=== PATIENT | male | born 2000 | race Caucasian/White ===

== ENCOUNTER 2025-02-21 08:04 | Outpatient (REF) | payer OTHER, SELFPAY ==
--- NOTE | ~2025-02-21 | MR_ITS ---
EXAMINATION: MR ELBOW WITHOUT CONTRAST, LEFT CLINICAL INFORMATION: Elbow pain, posterior medial aspect. Injury approximately 12 weeks prior, continued pain. COMPARISON: No prior imaging available. TECHNIQUE: MRI of the elbow was performed using routine sequences on a 1.5 Jennifer Siemens high-field unit. FINDINGS: There is increased signal and mild thickening of the anterior bundle, medial collateral ligament at its humeral insertion, suggestive of partial tearing. (Series 5, image 20; series 9, image 20). There is no complete tear of the medial collateral ligaments. The sublime tubercle has a normal appearance. The radial collateral ligament appears intact and normal in signal. The annular ligament appears intact and normal in signal. The common extensor tendon, and common flexor tendons appear intact and normal in signal. There is normal bony alignment. There is no joint effusion. There is no subchondral bone plate edema or cartilaginous abnormalities identified in either the radial capitellar or ulnar trochlear joints. There is no bone marrow signal abnormality identified to suggest contusion or fracture. The triceps tendon and has normal appearance and morphology. The bicipital tendon, and brachialis tendon appear intact and normal in signal. MR/MR elbow LT wo con IMPRESSION: 1. Partial tear injury of the anterior bundle, medial collateral ligament at its humeral insertion. 2. The remainder of the examination is normal. Electronically signed by: Rudi Barkley MD 02/21/2025 09:17 AM EDT
--- OUTSIDE RECORDS SUMMARY | 2025-02-21 08:07 | XMS_ITS | Clinical Summary ---
Author Organization [facility] Address [address] [place] [phone] Phone Care Team Providers Care Item Repair Manager Name Role Phone Provider, Osmany SWEENEY Primary Care Provider [phone] Allergies No known active allergies Medications fexofenadine 180 MG tablet Take 180 mg by mouth daily. Active saccharomyces boulardii 250 MG capsule Take 250 mg by mouth daily. Active ISOtretinoin (ACCUTANE PO) Take by mouth. 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 Marijuana user 11/09/2018 Weight loss, unintentional 08/18/2018 Overview (08/18/2018): 08/2018 Noted 11lb loss since 05/2018 Immunizations Immunization Administration Dates Next Due COVID-19 Pfizer, monovalent, 12+ years 1 DTaP 12/15/2007, 4,05/19/2003,03/21,01/13/2003 HPV Vaccine 9 Valent 11/26/2016,07/23/2016,05/21 Hep A, ped/adol 05/31/2021,05/29/2020 Hep B, ped/adol 08/18/2003,2002,2002 Hib (HbOC) 02/20/2004, 3,03/21/2003,01/13 IPV 12/15/2007, 4,03/21/2003,01/13 Influenza, injectable, quadr ivalent, preservative free 06/22/2020,08/05/2018,08/11/2017 Influenza, injectable, trivalent 07/23/2016,100 03/2009,07/09/2004 MMR 02/20/2004 MMRV 11/27/2006 Meningococcal B Bexsero 05/31/2021 Meningococcal Conj (Menactra) MCV4P 05/26/2019,0 06/22/2014 Pneumococcal Conjugate 11/22/2003,2002,03/21/2003,01/13 Tdap 06/22/2014 Varicella 02/20/2004 Family History Medical History Relation Name Comments Hyperlipidemia Father Breast cancer Maternal Grandmother Asthma Mother Relation Name Status Comments Father Maternal Grandmother Mother Other 1 Asthma/Wheezing : Mother Other 2 Cancer: Paterna l Grandmother Other 3 Eczema/Psoriasi s: Mother Other 4 Thyroid disease : Paternal Grandmother Social History Tobacco Use Types Packs/Day Years Used Date Smoking Tobacco: Never Smokeless Tobacco: Never Comments:never smoker Alcohol Use Standard Drinks/Week Comments No 0 (1 standard drink = 0.6 oz pur e alcohol) Sex and Gender Information Value Date Recorded Sex Assigned at Male 05/26/2019 8:55 AM EDT Legal Sex Male 8:27 PM EST Gender Identity Male 05/26/2019 8:55 AM EDT Sexual Orientation Straight 05/26/2019 8: 55 AM EDT Last Filed Vital Signs Vital Sign Reading Time Taken Comments Blood Pressure 108/72 05/29/2020 8:07 AM EDT Pulse - - Temperature 36.6 ??C (97.8 ??F) 05/26/2019 8:28 AM ED T Respiratory Rate - - Oxygen Saturation 99% 10/14/2018 8:29 AM EST Inhaled Oxygen Concentration - - Weight 85.3 kg (188 lb) 05/31/2021 1:30 PM EDT Height 172.7 cm (5' 8 ) 05/31/2021 1:30 PM EDT Body Mass Index 28.59 05/31/2021 1:30 PM EDT Plan of Treatment Health Maintenance Due Date Last Done Comments Men B Vaccine (2 of 2 - Bexs ero SCDM 2-dose series) 12/01/2021 05/31/2021 Influenza Vaccines (#1) 2024 07/17/20 22, 07/08/2021, 06/22/2020, Additional history exists COVID-19 Vaccine (3 - 2023-2 5 season) 2024 09/20/2021, 01/19/2021 DTaP,Tdap,and Td Vaccines (7 - Td or Tdap) 06/22/2024 06/22/2014, 12/15/2007, 05/22/2004, Additional history exists Hepatitis B Vaccines Completed 08/18/2003, 2002, 2002 Pneumococcal Vaccine Completed 11/22/2003, 05/19/2003, 03/21/2003, Additional history exists HIB Vaccines Completed 02/20/2004, 05/06, 03/21/2003, Additional history exists MMR Vaccines Completed 11/27/2006, 02/20/2004 Varicella Vaccines Completed 11/27/2006, 02/20/2004 IPV Vaccines Completed 12/15/2007, 05/06, 03/21/2003, Additional history exists HPV Vaccines Completed 11/26/2016, 07/06, 05/21/2016 Meningococcal Vaccine Completed 05/26/2019, 014 Hepatitis A Vaccines Completed 05/31/2021, 05/29/20 [place] [id number] Care Teams Item Repair Manager Relationship Specialty Start Date End Date Provider, MD Osmany [address] [place] [id number] PCP - General Pediatrics 08/26/22
--- OUTSIDE RECORDS SUMMARY | 2025-02-21 08:08 | XMS_ITS | Data Portability ---
Author Organization [facility], [facility] Address [address] [address] Assessment Encounter Date Assessment Date Assessment LastModified by Organization Details LastModified Time 05/28/2021 05/28/2021 Pt is a 20 yo RH D Male presenting with RIGHT shoulder pain attributed to AC joint sprain, secondary impingement and chronic glenohumeral joint hypermobility. Patient's physical impairments include pain, glenohumeral joint hypermobility, weakness of the RTC and periscapular musculature, impaired motor control of the scapulothoracic joint and shoulder complex. Pt will benefit from skilled PT to address above impairments in order to facilitate return to functional and recreational tasks, pain free and without incidents of instability. Pt recommended for skilled PT _1-2____ x per week for ____8____ weeks. Treatment to include stretching, soft tissue and joint mobilization techniques, strength training for the RTC and periscapular muscles, as well as dynamic stability tasks, and modalities prn for pain control. Next Visit: progress into dynamic stability exercises [email or web address] Not available 05/28/2021 12:45:37 06/01/2021 06/01/2021 Patient tolerate d new exercises completed today, which focused on dyanmic stability and control. He will progress with his exercises as tolerated Pt is a 20 yo RHD Male presenting with RIGHT shoulder pain attributed to AC joint sprain, secondary impingement and chronic glenohumeral joint hypermobility. Patient's physical impairments include pain, glenohumeral joint hypermobility, weakness of the RTC and periscapular musculature, impaired motor control of the scapulothoracic joint and shoulder complex. Pt will benefit from skilled PT to address above impairments in order to facilitate return to functional and recreational tasks, pain free and without incidents of instability. Pt recommended for skilled PT _1-2____ x per week for ____8____ weeks. Treatment to include stretching, soft tissue and joint mobilization techniques, strength training for the RTC and periscapular muscles, as well as dynamic stability tasks, and modalities prn for pain control. Next Visit: progress into dynamic stability exercises [email or web address] Not available 06/01/2021 14:46:52 06/06/2021 06/06/2021 Patient progress ed through all exercises today, which focused on strength and stability. No pain or feelings of instability. He will progress with his exercises as tolerated Pt is a 20 yo RHD Male presenting with RIGHT shoulder pain attributed to AC joint sprain, secondary impingement and chronic glenohumeral joint hypermobility. Patient's physical impairments include pain, glenohumeral joint hypermobility, weakness of the RTC and periscapular musculature, impaired motor control of the scapulothoracic joint and shoulder complex. Pt will benefit from skilled PT to address above impairments in order to facilitate return to functional and recreational tasks, pain free and without incidents of instability. Pt recommended for skilled PT _1-2____ x per week for ____8____ weeks. Treatment to include stretching, soft tissue and joint mobilization techniques, strength training for the RTC and periscapular muscles, as well as dynamic stability tasks, and modalities prn for pain control. Next Visit: progress into dynamic stability exercises Not available 06/06/2021 08:26:00 06/20/2021 06/20/2021 Patient continue d to progress through all exercises today, which focused on strength and stability. No pain or feelings of instability. He will undergo re-evaluation during next PT session. Pt is a 20 yo RHD Male presenting with RIGHT shoulder pain attributed to AC joint sprain, secondary impingement and chronic glenohumeral joint hypermobility. Patient's physical impairments include pain, glenohumeral joint hypermobility, weakness of the RTC and periscapular musculature, impaired motor control of the scapulothoracic joint and shoulder complex. Pt will benefit from skilled PT to address above impairments in order to facilitate return to functional and recreational tasks, pain free and without incidents of instability. Pt recommended for skilled PT _1-2____ x per week for ____8____ weeks. Treatment to include stretching, soft tissue and joint mobilization techniques, strength training for the RTC and periscapular muscles, as well as dynamic stability tasks, and modalities prn for pain control. Next Visit: progress into dynamic stability exercises [email or web address] Not available 06/20/2021 16:41:44 03/12/2024 03/12/2024 Mike is a 22-year-old male presents today for left knee pain secondary to an injury that occurred while playing lacrosse at [facility] in January when he fell. He had a twisting injury had immediate pain swelling decreased range of motion. Was treated by the athletic trainers who likely thought it was a bone bruise and continue to treat him with exercise activities and modalities. He continues to play however he was in pain after playing and practicing. Continues to have pain with flexion extension pain going up and down stairs. He is tried extensive nonsteroidal anti-inflammatorie s home exercise program and physical therapy since January with no benefit. States it is hard for him to do normal daily activities without having significant pain. Current exam reveals range of motion 0-125 degrees flexion mild pain with extension. Overall muscle strength is 4 5 positive medial joint line tenderness positive Susan's no knee instability. X-rays are negative Plan this current time due to his persistent symptoms pain has been having difficulty on a daily basis I would recommend that he undergo a left knee MRI looking for medial meniscal tear versus chondral injury. [email or web address] Not available 03/12/2024 13:11:42 Plan of Treatment Reminders Order Date Submit Date Provider Last Modified By Organization Details Last Modified Time Details Appointments None record ed. Lab None record ed. Referral None record ed. Procedures None record ed. Surgeries None record ed. Imaging None record ed. Medication Orders None record ed. Patient Targets Encounter Date Encounter Id Patient Goals Patient Target Last Modified By Organization Details Last Modified Time STG (4-6 weeks):1. improved Quick DASH to <152. improved RTC strength of supraspinatus and infraspinatus to 4+/53. improved periscapular muscles to 4/5STG (4-6 weeks):1. improved Quick DASH to <1502. improved RTC strength of supraspinatus and infraspinatus to 5/53. improved periscapular muscles to 4+/54.y-balance test composite score >90% [email or web address] Not available 05/28/2021 12:49:03 STG (4-6 weeks):1. improved Quick DASH to <152. improved RTC strength of supraspinatus and infraspinatus to 4+/53. improved periscapular muscles to 4/5STG (4-6 weeks):1. improved Quick DASH to <1502. improved RTC strength of supraspinatus and infraspinatus to 5/53. improved periscapular muscles to 4+/54.y-balance test composite score >90% [email or web address] Not available 06/01/2021 13:54:51 STG (4-6 weeks):1. improved Quick DASH to <152. improved RTC strength of supraspinatus and infraspinatus to 4+/53. improved periscapular muscles to 4/5STG (4-6 weeks):1. improved Quick DASH to <1502. improved RTC strength of supraspinatus and infraspinatus to 5/53. improved periscapular muscles to 4+/54.y-balance test composite score >90% [email or web address] Not available 06/06/2021 07:03:03 STG (4-6 weeks):1. improved Quick DASH to <152. improved RTC strength of supraspinatus and infraspinatus to 4+/53. improved periscapular muscles to 4/5STG (4-6 weeks):1. improved Quick DASH to <1502. improved RTC strength of supraspinatus and infraspinatus to 5/53. improved periscapular muscles to 4+/54.y-balance test composite score >90% [email or web address] Not available 06/20/2021 15:58:05 Patient InstructionsNo instructions recorded. Reason for Referral None Reported. Results Created Date Observation Date Name Description Value Unit Range Abnormal Flag Note LastModifiedBy Organization Detail LastModifiedTime 04/30/20 21 XR, shoul juliana, 2 or more view No observ ation record ed. In-House Order For [place] Provider For Internal Use Only, [id number] 04/30/2021 10:57:28 05/09/20 21 05/08/2021 MRI, shoul juliana, w/o contr ast No observ ation record ed. [email or web address] In-House Order For [place] Provider For Internal Use Only, [id number] 05/09/2021 12:07:46 05/11/20 21 05/11/2021 XR, shoul juliana, 2 or more view [facility] [address] [place] [address] Patien t Name: Winnie Willetta daniel Record #: [id number] Addres s: [address] Accoun t#: [id number] City/S white/Z ip: [place] [address]: Collins Alamo MD Phone: Insura nce: [place] [employer] /[facility] /Ag e/Sex: 10/M Self Pay Admit/ Reg Date: Orderi ng Dr: Collins Alamo MD Locati on: [facility] PCP: Date of Servic e: Order (s): XR should er RT min 2V CPT Code: 61500 Report Number : [id number] Reason for Exam: RIGHT SHOULD ER PAIN INDICA TION: Right should er pain TECHNI QUE: 3 views of the right should er. COMPAR BRADLEY: None FINDIN GS: No fractu re or disloc ation is identi fied. Minera lizati on is normal . Glenoh umeral joint and AC joint appear unrema rkable . Soft tissue s are unrema rkable . The visual ized lung is clear. IMPRES GEENA: Unrema rkable right should er. Dictat ed By: Aicha costello MD 2037 Signed By: Melvin Nowak i, MD 2037 TD/TT: 2037 Tech: [id number] cc: PRATEEK* Collins Alamo MD [email or web address] [facility] ? Rad [address], [place], [address] 05/23/2021 11:56:09 Result Notes None recorded. Procedures Surgical History Date Name Laterality Status Provider Name and Address Organization Details Recorded Time 06/20/20 48927 Therapeutic Exercise completed Hua Reynoso, PT [address] [place], [place], , [facility] 06/20/2021 16:41:39 06/20/20 57389 Neuromuscular reeducation completed Hua Reynoso, PT [address] [facility], [place], [place], , [facility] 06/20/2021 16:26:39 06/06/20 83787 Therapeutic Exercise completed Hua Reynoso, PT [address] [place], [place], , [facility] 06/06/2021 08:25:17 06/06/20 77760 Neuromuscular reeducation completed Hua Reynoso, PT [address] [facility], [place], [place], , [facility] 06/06/2021 08:25:14 06/01/20 34378 Therapeutic Exercise completed Hua Reynoso, PT [address] [place], [place], , [facility] 06/01/2021 14:47:33 06/01/20 98736 Neuromuscular reeducation completed Hua Reynoso, PT [address] [place], [place], , [facility] 06/01/2021 14:43:48 05/28/20 64885 Therapeutic Exercise completed Hua Reynoso, PT [address] [place], [place], , [facility] 05/28/2021 12:39:36 05/28/20 06545/ 09654/ 27694 PT Evaluation completed Hua Reynoso, PT [address] [place], [place], , [facility] 05/28/2021 12:38:37 Imaging Results Imaging Date Name Status LastModified by Organiz ation Details LastModified Time 04/30/2021 XR, shoulder, 2 or more view completed [email or web address] In-House Order For [place]as[place] Provider For Internal Use Only, [id number] 04/30/2021 10:57:28 05/08/2021 MRI, shoulder, w/o contrast completed [email or web address] In-House Order For [place] Provider For Internal Use Only, [id number] 05/09/2021 12:07:46 05/11/2021 XR, shoulder, 2 or more view completed [email or web address] [facility] ? Rad [address], [place], [address] 05/23/2021 11:56:09 Procedure Notes None recorded. Medical Equipment None Reported. Allergies No known drug allergies Medications Name Sig Start Date Stop Date Status Note LastModified by Organization Details LastModified Time minocycline 100 mg capsule TAKE 1 CAPSULE BY MOUTH EVERY DAY active Not Available Not Available No t Available prednisone 20 mg tablet active Not Available Not Available Not Available doxycycline monohydrate 100 mg tablet TAKE 1 TABLET BY MOUTH TWO TIMES DAILY FOR 7 DAYS active Not Available Not Available N ot Available clindamycin 1 % topical gel APPLY TOPICALLY TO AFFECTED AREA(S) EVERY DAY active Not Available Not Available No t Available benzonatate 100 mg capsule active Not Available Not Available Not Available triamcinolon e acetonide 0.1 % topical ointment APPLY A SMALL AMOUNT TO AFFECTED AREAS TWO TIMES DAILY active Not Available Not Available Not Available cefuroxime axetil 500 mg tablet TAKE 1 TABLET BY MOUTH EVERY MORNING AND TAKE 1 TABLET BY MOUTH EVERY EVENING FOR 10 DAYS active Not Available Not Available No t Available methylpredni solone 4 mg tablets in a dose pack TAKE BY MOUTH DIRECTED BY PACKAGE INSTRUCTION S. TAKE EACH DAYS DOSE ALL AT ONCE EACH MORNING active Not Available Not Available No t Available doxycycline hyclate 100 mg tablet active Not Available Not Available No t Available amoxicillin 875 mg-potassium clavulanate 125 mg tablet TAKE 1 TABLET BY MOUTH TWO TIMES DAILY FOR 7 DAYS active Not Available Not Available N ot Available sodium fluoride 1.1 % dental paste BRUSH THOROUGHLY ONCE DAILY FOR TWO MINUTES, PREFERABLY AT BEDTIME, EXPECTORTAT E THE EXCESS. DO NOT RINSE OR DRINK FOR 30 MINUTES AFTER USE active Not Available Not Available No t Available Myorisan 40 mg capsule TAKE 1 CAPSULE BY MOUTH TWO TIMES DAILY active Not Available Not Available Not Available Vitals None Recorded Social History None recorded. Functional Status None recorded. Mental Status None recorded. Family History Nothing Reported. Medical History No medical history recorded. Past Encounters Encounter ID Performer Location Encounter Start Date Encounter Closed Date Diagnosis/Indication Diagnosis SNOMED-CT Code Diagnosis ICD10 Code Diagnosis Note [id number] ANKIT MCCORMICK MD [address] [address] 08/14/2020 14:36:38 08/14/2020 15:12:22 Fracture of neck of metacarpal bone 69268508 S62.337A [id number] ANKIT MCCORMICK MD [address] [address] 09/04/2020 14:56:30 09/04/2020 17:24:12 Fracture of neck of metacarpal bone 05471463 S62.337A [id number] ANKIT MCCORMICK MD [address] [address] 09/18/2020 11:40:09 09/18/2020 12:27:56 Fracture of neck of metacarpal bone 07436100 S62.337A [id number] LESLY DIOP [address] [address] 05/04/2021 08:17:44 05/05/2021 11:35:15 Pain of left shoulder joint 1290476275 3833471 M25.512 [id number] LESLY DIOP [address] [address] 05/14/2021 08:05:05 05/14/2021 14:33:11 Pain of right shoulder joint 9690822010 2576672 M25.511 [id number] Hua Reynoso, PT [address] [address] 05/28/2021 08:20:45 05/29/2021 08:06:18 Muscle weakness 32510003 M62.81 Pain of ri ght shoulder joint 5759716186 4306251 M25.511 [id number] Hua Reynoso, PT [facility] [address] [place] [address] 06/01/2021 13:52:51 06/04/2021 08:00:37 Muscle weakness 07402742 M62.81 Pain of ri ght shoulder joint 5037424569 7930788 M25.511 [id number] Hua Reynoso, PT [facility] [address] [place] [address] 06/06/2021 07:39:08 06/06/2021 09:50:51 Muscle weakness 83624894 M62.81 Pain of ri ght shoulder joint 7646196940 [id number] M25.511 [id number] Hua Edgardo, PT [facility] [address] [place] [address] 06/20/2021 15:57:04 06/20/2021 19:49:21 Muscle weakness 98271998 M62.81 Pain of ri ght shoulder joint 9546304592 9726634 M25.511 [id number] LESLY DIOP [facility] [address] [place] [address] 03/12/2024 10:55:14 03/12/2024 13:42:42 Pain of left knee joint 8532287104 15201 M25.562 Health Concerns Section Related Observation LastModified by Organization Detai ls LastModified Time None Recorded Concern Status LastModified by Organization Details LastModified Time None Recorded Advance Directives Directive None Recorded Payers Insurance Date Sequence Insurance Name Policy Number Policy Hennessy Covered Member ID Hennessy Member ID Guarantor Name 03/09/2024 1 [facility] [id number] Tomy Willett [id number] Tomy Willett Notes Date Note Type Note Provider Name and Address Organization Details Recorded Time 05/28/2021 text/html Patient is an 20 y o male who presents with RIGHT shoulder pain during functional activities. patient describes initial onset of pain following contact injury while playing [employer] in early May (2020). He describes getting checked and feeling his shoulder popped out and then back in . Pain was 8/10 on VRS and patient also describes some numbness into the arm. Discomfort in the shoulder decreased as went on. Patient had radiographs and MRI completed on the RIGHT shoulder, highlighting increased inflammation at the AC joint. Mike claims that the reports also proved negative for fracture or signficiant soft tissue injury. Patient received cortisone injection about a week ago, before his last [employer] game of the season. Patient was checked in the RIGHT shoulder but pain was no more than 6/10, and dissipated within 5-10 min. Mike is now in his off-season for [employer], and he hopes to improve his shoulder's stability. PMH reveals bilateral shoulder subluxations, without medical assistance. Hua Reynoso, PT [address] [place], [address], [facility] 05/28/2021 12:49:52 06/01/2021 text/html Patient is an 20 y o male who presents with RIGHT shoulder pain during functional activities. patient describes initial onset of pain following contact injury while playing [employer] in early May (2020). He describes getting checked and feeling his shoulder popped out and then back in . Pain was 8/10 on VRS and patient also describes some numbness into the arm. Discomfort in the shoulder decreased as went on. Patient had radiographs and MRI completed on the RIGHT shoulder, highlighting increased inflammation at the AC joint. Mike claims that the reports also proved negative for fracture or signficiant soft tissue injury. Patient received cortisone injection about a week ago, before his last [employer] game of the season. Patient was checked in the RIGHT shoulder but pain was no more than 6/10, and dissipated within 5-10 min. Mike is now in his off-season for [employer], and he hopes to improve his shoulder's stability. PMH reveals bilateral shoulder subluxations, without medical assistance. Huakelsie Reynoso, PT [address] [place], [address], [facility] 06/01/2021 14:47:52 06/06/2021 text/html Patient is an 20 y o male who presents with RIGHT shoulder pain during functional activities. patient describes initial onset of pain following contact injury while playing [employer] in early May (2020). He describes getting checked and feeling his shoulder popped out and then back in . Pain was 8/10 on VRS and patient also describes some numbness into the arm. Discomfort in the shoulder decreased as went on. Patient had radiographs and MRI completed on the RIGHT shoulder, highlighting increased inflammation at the AC joint. Mike claims that the reports also proved negative for fracture or signficiant soft tissue injury. Patient received cortisone injection about a week ago, before his last [employer] game of the season. Patient was checked in the RIGHT shoulder but pain was no more than 6/10, and dissipated within 5-10 min. Mike is now in his off-season for [employer], and he hopes to improve his shoulder's stability. PMH reveals bilateral shoulder subluxations, without medical assistance. Current Condition: Patient comes in today stating that he has been completing his HEP as instructed. He states that his shoulder has been feeling generally pretty good. Hua Reynoso, PT [address] [place], [address], [facility] 06/06/2021 08:26:24 06/20/2021 text/html Patient is an 20 y o male who presents with RIGHT shoulder pain during functional activities. patient describes initial onset of pain following contact injury while playing [employer] in early May (2020). He describes getting checked and feeling his shoulder popped out and then back in . Pain was 8/10 on VRS and patient also describes some numbness into the arm. Discomfort in the shoulder decreased as went on. Patient had radiographs and MRI completed on the RIGHT shoulder, highlighting increased inflammation at the AC joint. Mike claims that the reports also proved negative for fracture or signficiant soft tissue injury. Patient received cortisone injection about a week ago, before his last [employer] game of the season. Patient was checked in the RIGHT shoulder but pain was no more than 6/10, and dissipated within 5-10 min. Mike is now in his off-season for [employer], and he hopes to improve his shoulder's stability. PMH reveals bilateral shoulder subluxations, without medical assistance. Current Condition: Patient denies much pain or discomfort in the RIGHT shoulder since his last PT session. Hua Reynoso, PT [address] [place], [address], [facility] 06/20/2021 16:44:58
--- OUTSIDE RECORDS SUMMARY | 2025-02-21 08:08 | XMS_ITS | Encounter Summary ---
Author Organization [facility] Address [address] [place] [address] Phone Care Team Providers Care Mine Motor Engineer Name Role Phone Ford Kingston MD Primary Care Provider [email or web address], Unknown Primary Care Provider Sruthi martin Encounter Details Date Type Department Care Team (Late st Contact Info) Description 09/24/2022 Procedure Pass [facility] Department [address] [place] [address] Social History Tobacco Use Types Packs/Day Years Used Date Smoking Tobacco: Never Assessed Sex and Gender Information Value Date Recorded Sex Assigned at Male 06/02/2023 11:14 AM EDT Legal Sex Male 9:36 AM EDT Gender Identity Male 06/02/2023 11:14 AM EDT Sexual Orientation Straight 06/02/2023 11 :14 AM EDT documented as of this encounter Last Filed Vital Signs Vital Sign Reading Time Taken Comments Blood Pressure - - Pulse - - Temperature - - Respiratory Rate - - Oxygen Saturation - - Inhaled Oxygen Concentration - - Weight 79.4 kg (175 lb) 09/24/2022 2:38 PM EST Height 177.8 cm (5' 10 ) 09/24/2022 2:38 PM EST Body Mass Index 25.11 09/24/2022 2:38 PM EST documented in this encounter Plan of Treatment Not on file documented as of this encounter Visit Diagnoses Not on filedocumented in this encounter Care Teams Mine Motor Engineer Relationship Specialty Start Date End Date Ford Kingston MD PCP - General Adolescent Medicine 05/29/20 05/25/23 Unknown, Unknown, PCP - General 05/26/23 documented as of this encounter Additional Source Comments The information contained in this document represents components of the legal health record. It is not the complete legal health record.[facility]
--- OUTSIDE RECORDS SUMMARY | 2025-02-21 08:08 | XMS_ITS | Clinical Summary ---
Author Organization [facility] Address [address] [facility] [address] [place] [address] Phone Care Team Providers Care Stacker Operator Name Role Phone Unknown, Unknown Primary Care Provider Sruthi labacacia Allergies No known active allergies Medications fexofenadine (LIZANDRO) 180 MG tablet Take 180 mg by mouth. Active Saccharomyces boulardii (FLORASTOR) 250 mg capsule Take 250 mg by mouth. Active tretinoin (RETIN-A) 0.025 % cream Apply 0.025 application topically. 8 Active phenylephrine (SUDAFED PE) 10 MG Tab Take 10 mg by mouth every 4 (four) hours as needed. Active bacillus coagulans-inuli n 1 billion-250 cell-mg Cap Take 250 mg by mouth daily. Active methylPREDNISol one (MEDROL DOSEPACK) 4 mg tablet follow package directions or the patient may take each days dose all at once each morning 21 tablet 3 Active Active Problems No known active problems Social History Tobacco Use Types Packs/Day Years Used Date Smoking Tobacco: Never Smokeless Tobacco: Never Tobacco Cessation:Counseling Given: Not Answered Education Answer Date Recorded Are you interested in more education? Not on belem e 01/31/2023 Are you concerned about learning? Not on file 01/31/2023 No 01/31/2023 No 01/31/2023 Digital Access Answer Date Recorded No 03/01/2023 No 03/01/2023 Reliable internet access at home? Not on file 03/01/2023 Device with a working camera? Not on file Sex and Gender Information Value Date Recorded Sex Assigned at Male 06/02/2023 11:14 AM EDT Legal Sex Male 9:36 AM EDT Gender Identity Male 06/02/2023 11:14 AM EDT Sexual Orientation Straight 06/02/2023 11 :14 AM EDT Last Filed Vital Signs Vital Sign Reading Time Taken Comments Blood Pressure - - Pulse - - Temperature 36.7 ??C (98 ??F) 05/30/2020 1:17 PM EDT Respiratory Rate - - Oxygen Saturation - - Inhaled Oxygen Concentration - - Weight 79.4 kg (175 lb) 09/24/2022 2:38 PM EST Height 177.8 cm (5' 10 ) 09/24/2022 2:38 PM EST Body Mass Index 25.11 09/24/2022 2:38 PM EST Plan of Treatment Health Maintenance Due Date Last Done Comments DEPRESSION SCREENING 2014 SMOKING Hx and SMOKELESS TOB ACCO SCREENING 2015 HPV VACCINES (1 - Male 3-dos e series) 2017 HEPATITIS C SCREENING 2020 HIV ONE-TIME SCREENING (18-6 5 YEARS) 2020 INFLUENZA VACCINE (#1) 2024 COVID-19 VACCINE ( - 2023-2 5 season) 2024 Adult Td,Tdap Booster 06/22/2024 06/22/2014 HEPATITIS A VACCINES Aged Out No long er eligible based on patient's age to complete this topic HIB VACCINES Aged Out No longer eligi ble based on patient's age to complete this topic MENINGOCOCCAL VACCINES (ACWY) Aged Out No longer eligible based on patient's age to complete this topic PNEUMOCOCCAL VACCINES (0-49 years) Aged Out No longer eligible based on patient's age to complete this topic Medical Devices Not on [place] [address] [place] [address] PPO [facility] PPO [facility] PPO [facility] PPO [facility] PPO [facility] PPO [facility] PPO Care Teams Stacker Operator Relationship Specialty Start Date End Date Unknown, Unknown, PCP - General 05/26/23 Additional Source Comments The information contained in this document represents components of the legal health record. It is not the complete legal health record.[facility]
--- OUTSIDE RECORDS SUMMARY | 2025-02-21 08:08 | XMS_ITS | Clinical Summary ---
Author Organization [facility] [employer] Address [address] [facility] [place] [address] Care Team Providers Care Jet Operator Name Role Phone No, Pcp SALES AND TRAINING SPECIALIST Primary Care Provider Unavailabl e Social History Tobacco Use Types Packs/Day Years Used Date Smoking Tobacco: Never Assessed Sex and Gender Information Value Date Recorded Sex Assigned at Not on file Legal Sex Male 5:05 PM EDT Gender Identity Not on file Sexual Orientation Not on file Plan of Treatment Health Maintenance Due Date Last Done Comments Depression: Screening Annual ly using PHQ-2/9 in Adults 18 yrs or above (or HM Modifier)([facility]) 2002 Hepatitis C Virus Infection in Adolescents and Adults: Screening (or Modifier) ([facility]) 2020 SDOH Screening Reminder: Treva downey for all adults ([facility]) 2020 Tobacco Smoking Cessation: i n Adults excluding Women: Behavioral and Pharmacotherapy Interventions ([facility]) 2020 DTaP/Tdap/Td Vaccines ([facility]) (1 - Tdap) 2021 Lipid Screening: Once for Me n aged 20 to 35 yrs ([facility]) 2022 COVID-19 Vaccine Screening: Initial Series and Booster Status ([facility]) ( - 2023- season) 2024 Flu Vaccination: Yearly for ages 18mos through 64 years (or Modifier)([facility]) 05/06/2025 Zoster/Shingles Vaccine Seri es Screening: Adults aged 18+ yrs (or HM Modifiers)([facility]) (1 of 2) 2052 Pneumococcal Vaccination Scr eening: Pts 0-19 & 19-49 yrs of age ([facility]) Aged Out No longer eligible based on patient's age to complete this topic Medical Devices Not on file Insurance [facility] Care Teams Jet Operator Relationship Specialty Start Date End Date No, Pcp, SALES AND TRAINING SPECIALIST N/A Do not use PCP - General Family Medicine 08/04/20
--- OUTSIDE RECORDS SUMMARY | 2025-02-21 08:08 | XMS_ITS | Clinical Summary ---
Author Organization [facility] Address [address] [place] [address] [place] [address] Care Team Providers Care Strategic Alliances Manager Name Role Phone Dane Jasso Do Primary Care Provider [phone] Allergies No known active allergies Medications fluticasone propionate 50 mcg/actuation [place], Suspension Apply 1 spray in each nostril daily Active Active Problems Problem Noted Date Diagnosed Date Attention deficit hyperactivity disorder, inatte ntive type 12/16/2018 Resolved Problems Problem Noted Date Diagnosed Date Resolved Date Failed hearing screening 05/29/2020 Marijuana user 11/09/2018 05/26/2024 Weight loss, unintentional 08/18/2018 0 05/26/2024 Overview (05/24/2024): 08/2018 Noted 11lb loss since 05/2018 Encounters Date Type Department Care Team Description 01/14/2025 Telephone [facility] [address] [place] [phone] Medicine, Internal RESCHEDULE APPOINTMENT from Last 3 Months Immunizations Name Administration Dates Next Due COVID-19 (PFIZER) Vaccine, 30mcg/0.3mL, 12YRS+, Diluent Reconstituted, IM 09/20/2021,01/28/2021 DTaP Vaccine 12/15/2007, 4,05/19/2003,03/21,01/13/2003 HFlu B Conj (HBOC) 02/20/2004, 3,03/21/2003,01/13 HPV9 Vaccine (Gardasil9) 11/26/2016,07/23/2016,0 05/21/2016 Hep A Vaccine Pedi/Adol-2 Dose Sched 05/31/2021, 05/29/2020 Hepatitis B Vaccine Pedi/Ado lescent 3 Dose Schedule 08/18/2003,2002,2002 Influenza Vaccine (Unspecifi ed Formulation) 07/11/2009,07/09/2004 Influenza Vaccine, 6MOS+, Ce ll Cult, Single Dose Syringe, 0.5 mL (FLUCELVAX) 07/08/2021 Influenza Vaccine, 6MOS+, Si ngle Dose, 0.5 mL (Flulaval/Fluzone) 07/17/2022,08/05/2018,08/11/2017 Influenza Vaccine, Cell Cult , Subunit, Antibiotic Free 0.5 mL, >/=4 YRS 06/22/2020 Influenza Vaccine, Split Vir us (Unspecified Formulation) 07/23/2016 MMR Vaccine 02/20/2004 MMR-Varicella Vaccine 11/27/2006 Meningococcal ACWY (Menactra ) Conjugate Vaccine 05/26/2019,06/22/2014 Meningococcal Group B (Bexse ro) Conjugate Vaccine - 2 Dose 05/31/2021 Pneumococ/Pedi-Conjugate (PCV7) 11/22/19 04,05/19/2003,03/21/2003,01/13 Polio Vaccine (Inactivated) 12/15/2007,0 05/22/2004,03/21/2003,01/13 TdaP 05/26/2024,06/22/2014 Varicella Vaccine 02/20/2004 Social History Tobacco Use Types Packs/Day Years Used Date Smoking Tobacco: Never Smokeless Tobacco: Never Tobacco Cessation:Counseling Given: Not Answered Hunger Vital Sign Answer Date Recorded Within the past 12 months, y ou worried that your food would run out before you got the money to buy more. Never true 05/26/20 24 Within the past 12 months, t he food you bought just didn't last and you didn't have money to get more. Never true 05/26/2024 PRAPARE - Transportation Answer Date Re corded In the past 12 months, has l ack of transportation kept you from medical appointments or from getting medications? No 05/07 In the past 12 months, has l ack of transportation kept you from meetings, work, or from getting things needed for daily living? No 05/26/2024 Depression Answer Date Recorded Last PHQ-2 0 05/26/2024 Last PHQ-9 Not on file 05/26/2024 Suicidal Ideation/Self Harm Risk Not on file 05/26/2024 Housing Stability Answer Date Recorded What is your housing situation today? Has ghazal g 05/26/2024 Are you worried about losing your housing? No 05/26/[address] you li ve. Do you have problem with any of the following? (Choose all that apply) None of the Above Request Assistance Answer Date Recorded Would you like to discuss an y of the needs you identified in this survey with a member of your care team? No 2023 Urgent Assistance Needed Not on file 024 Social Isolation Answer Date Recorded How often do you feel lonely or isolated from th ose around you? Never 05/26/2024 Family Needs Answer Date Recorded In the past year, have you o r any family members that you live with been unable to get resources (utilities such as power, water, or phone service; clothing; childcare; medicine or other healthcare; employment; etc) when they were really needed? No needs 05/26/2024 Other Needs Not on file 05/26/2024 Safety Answer Date Recorded Do you feel physically and e motionally safe where you currently live? Yes 05/26/2024 Self-Management Confidence Answer Date Recorded How confident are you that y ou can control and manage most of your health problems? Please provide numerical response between 0 -10. 0 = Not at all confident, 10= Completely confident. 10 05/26/2024 Sex and Gender Information Value Date Recorded Sex Assigned at Male 05/26/2024 1:09 PM EDT Legal Sex Male 10:09 AM EDT Gender Identity Male 05/26/2024 1:09 PM EDT Sexual Orientation Straight 05/26/2024 1: 09 PM EDT Obstetrics History Last Filed Vital Signs Vital Sign Reading Time Taken Comments Blood Pressure 118/70 05/26/2024 1:40 PM EDT Pulse 80 05/26/2024 1:26 PM EDT Temperature 36.4 ??C (97.6 ??F) 05/26/2024 1:26 PM ED T Respiratory Rate - - Oxygen Saturation 98% 05/26/2024 1:26 PM EDT Inhaled Oxygen Concentration - - Weight 87.3 kg (192 lb 6.4 oz) 05/26/2024 1:26 P M EDT Height 175.3 cm (5' 9 ) 05/26/2024 1:26 PM EDT Body Mass Index 28.41 05/26/2024 1:26 PM EDT Plan of Treatment Health Maintenance Due Date Last Done Comments HEP B INITIAL SCREENING 2020 HIV SCREENING 2020 MENINGOCOCCAL VACCINE (B) (2 of 2 - Bexsero SCDM 2-dose series) 12/01/2021 05/31/2021 COVID-19 Vaccine ( season) 2024 09/20/2021, 01/28/2021 PERIODIC HEALTH REVIEW 05/26/2027 05/26/2024 HEP C SCREENING 05/19/2029 05/19/2024 LIPID SCREENING 05/19/2029 05/19/2024 DTAP/TDAP/TD VACCINE (8 - Td or Tdap) 05/26/2034 05/26/2024, 06/22/2014, 12/15/2007, Additional history exists HEPATITIS B VACCINE Completed 08/18/2003, 2002, 2002 PNEUMOCOCCAL VACCINE(S) Aged Out 11/22/19 04, 05/19/2003, 03/21/2003, Additional history exists No longer eligible based on patient's age to complete this topic HAEMOPHILUS INFLUENZA VACCINE Completed 02/20/2004, 05/19/2003, 03/21/2003, Additional history exists POLIO VACCINE Completed 12/15/2007, 05/06, 03/21/2003, Additional history exists HPV VACCINE Completed 11/26/2016, 07/06, 05/21/2016 MENINGOCOCCAL VACCINE (ACWY) Completed 05/26/2019, 06/22/2014 HEPATITIS A VACCINE Completed 05/31/2021, 0 FLU SEASONAL Completed 07/12/2024, 07/06, 07/08/2021, Additional history exists RSV Vaccine //toddler Aged Out No longer eligible based on patient's age to complete this topic Procedures Procedure Name Priority Date/Time Associated Diagnosis Comments HEPATITIS C ANTIBODY W/REFLEX TO PCR Routine 05/19/2024 10:09 AM EDT Need for hepatitis C screening test LIPID PROFILE Routine 05/19/2024 10:09 AM EDT Encounter for screening for lipid disorder from Last 3 Months or Most Recently Relevant to Health Maintenance Results * LIPID PROFILE (05/19/2024 10:09 AM EDT) Pathologist [facility] CHOLESTEROL 160 <=199 mg/dL 05/19/2024 3:41 PM EDT [facility] DEPARTMENT OF PATHOLOGY AND LAB MEDICINE HDL 67 >=41 mg/dL 05/19/2024 3:41 PM EDT [facility] DEPARTMENT OF PATHOLOGY AND LAB MEDICINE CHOL/HDL RATIO 2.4 <=4.9 05/19/2024 3:41 PM EDT [facility] DEPARTMENT OF PATHOLOGY AND LAB MEDICINE LDL 83.4 <=130 mg/dL 05/19/2024 3:41 PM EDT [facility] DEPARTMENT OF PATHOLOGY AND LAB MEDICINE TRIGLYCERIDES 48 <=149 mg/dL 05/19/2024 3:41 PM EDT [facility] DEPARTMENT OF PATHOLOGY AND LAB MEDICINE FASTING STATUS Random 05/19/2024 3:41 PM EDT [facility] DEPARTMENT OF PATHOLOGY AND LAB MEDICINE Blood (Blood, Venous) Venipuncture / Unknown 05/19/2024 10:09 AM EDT 05/19/2024 10:19 AM EDT Dane Finley GENERAL LAB Final Result [facility] DEPARTMENT OF PATHOLOGY AND LAB MEDICINE [address] [place] [phone] * HEPATITIS C ANTIBODY W/REFLEX TO PCR (05/19/2024 10:09 AM EDT) Pathologist [facility] HEPATITIS C ANTIBODY 0.02 <0.80 Index Value (IV) 05/19/2024 4:01 PM EDT [facility] DEPARTMENT OF PATHOLOGY AND LAB MEDICINE Comment: NEGATIVE 0.00 - 0.79 Index Value (IV) Negative Test performed by the Siemens [employer] instrument using chemiluminescent immunoassay. Blood (Blood, Venous) Venipuncture / Unknown 05/19/2024 10:09 AM EDT 05/19/2024 10:19 AM EDT Dane Finley [facility] Final Result Performing Organization Address City/State/[facility] Co de Phone Number [facility] DEPARTMENT OF PATHOLOGY AND LAB MEDICINE [address] [place] [address] from Last 3 Months or Most Recently Relevant to Health Maintenance Insurance [facility] Care Teams Strategic Alliances Manager Relationship Specialty Start Date End Date Dane Jasso DO [address] [place] [address] PCP - General Internal Medicine 03/22/24
--- OUTSIDE RECORDS SUMMARY | 2025-02-21 08:08 | XMS_ITS | Clinical Summary ---
Author Organization [facility] Address [address] [place] [address] Care Team Providers Care Regulatory Compliance Engineer Name Role Phone Julia Schmitt NP Primary Care Provider [phone] Allergies No known active allergies Medications fexofenadine (LIZANDRO) 180 MG tablet Take 180 mg by mouth daily. Active fluticasone propionate (FLONASE) 50 mcg/actuation nasal spray 1 spray by Each Nare route daily. Active Social History Tobacco Use Types Packs/Day Years Used Date Smoking Tobacco: Never Sex and Gender Information Value Date Recorded Sex Assigned at Male 05/15/2021 5:29 PM EDT Legal Sex Male 3:06 AM EST Gender Identity Male 05/15/2021 5:29 PM EDT Sexual Orientation Not on file Last Filed Vital Signs Vital Sign Reading Time Taken Comments Blood Pressure 140/76 06/22/2018 10:54 PM EDT Pulse 48 06/22/2018 10:54 PM EDT Temperature 36.2 ??C (97.1 ??F) 03/09/2024 9:24 AM ED T Respiratory Rate 18 06/22/2018 10:54 PM EDT Oxygen Saturation 98% 06/22/2018 10:54 PM EDT Inhaled Oxygen Concentration - - Weight 83.9 kg (185 lb) 03/09/2024 9:24 AM EDT Height 177.8 cm (5' 10 ) 03/09/2024 9:24 AM EDT Body Mass Index 26.54 03/09/2024 9:24 AM EDT Plan of Treatment Health Maintenance Due Date Last Done Comments Blood Pressure 2002 Depression Screening 2006 Hepatitis C Screening 2020 Meningococcal B Vaccines (2 of 2 - Bexsero SCDM 2-dose series) 12/01/2021 05/31/2021 COVID-19 Vaccine ( - season) 2024 09/20/2021, 01/28/2021 DTaP,Tdap,and Td Vaccines (7 - Td or Tdap) 06/22/2024 06/22/2014, 12/15/2007, 05/22/2004, Additional history exists Influenza Vaccine (Season Ended) 2025 07/17/2022, 07/08/2021, 06/22/2020, Additional history exists Pneumococcal Vaccine: Pediatrics (0 to 5 Years) and At-Risk Patients (6 to 64 Years) Aged Out 11/22/2003, 05/19/2003, 03/21/2003, Additional history exists No longer eligible based on patient's age to complete this topic Meningococcal Vaccines Completed 05/26/2019, 2013 Insurance [facility] Care Teams Regulatory Compliance Engineer Relationship Specialty Start Date End Date Julia Schmitt NP [address] [place] [phone] PCP - General Nurse Practitioner 03/09/24
--- OUTSIDE RECORDS SUMMARY | 2025-02-21 08:08 | XMS_ITS | Encounter Summary ---
Author Organization [facility] Address [address] [place] [phone] Phone Care Team Providers Care Hospice Home Health Aide Name Role Phone Provider, Osmany SWEENEY Primary Care Provider [phone] Encounter Details Date Type Department Care Team (Late st Contact Info) Description 05/14/2017 Conversion Encounter [facility] [address], [address] [place] [address] Ford Kingston MD Social History Tobacco Use Types Packs/Day Years Used Date Smoking Tobacco: Never Assessed Sex and Gender Information Value Date Recorded Sex Assigned at Male 05/26/2019 8:55 AM EDT Legal Sex Male 8:27 PM EST Gender Identity Male 05/26/2019 8:55 AM EDT Sexual Orientation Straight 05/26/2019 8: 55 AM EDT documented as of this encounter Plan of Treatment Not on file documented as of this encounter Visit Diagnoses Not on filedocumented in this encounter Care Teams Hospice Home Health Aide Relationship Specialty Start Date End Date Provider, MD Osmany [address] [place] [address] [address] [place] [address] PCP - General Pediatrics 08/26/22 documented as of this encounter
== END 2025-02-21 08:05 | disposition home or self-care (01) ==
LOC: HO.MRI 08:04
PROVIDERS: Visit Provider Student in an Organized Health Care Education/Training Program
DX: M25.322 Other instability, left elbow (principal)
CPT/HCPCS: 73221

== ENCOUNTER → 2025-02-21 08:10 | Outpatient (BNV) | payer OTHER, SELFPAY | PROVIDERS: Visit Provider Radiology Diagnostic Radiology | DX: S53.442A Ulnar collateral ligament sprain of left elbow, initial encounter (principal) | CPT/HCPCS: 73221 ==